=== PATIENT | female | born 1975 | race Hispanic/Latino ===

== ENCOUNTER → 2022-01-20 | Day surgery (SDC) | payer OTHER ==
[~2022-01-20] MED LIST: BUPIVACAINE 0.25% 30ML SDV ONE; CALCIUM CARBON500 MG PO; FENTANYL CITRATE/PF 100MCG/2 ML INJ ONE; HYDROCODONE/APAP 5MG-325MG TAB ONE; MULTI-VITAMIN1 EACH PO; VITAMIN D PO
[2022-01-20 10:35] VITALS: BP 138/82
== END | disposition home or self-care (01) ==
LOC: OR 07:10
PROVIDERS: ATTEND Orthopaedic Surgery
DX: S83.271A Complex tear of lateral meniscus, current injury, right knee, initial encounter (principal); M67.51 Plica syndrome, right knee; M22.41 Chondromalacia patellae, right knee
CPT/HCPCS: 29881; J0690; J3010